=== PATIENT | female | born 1965 | race Caucasian/White ===

== ENCOUNTER 2020-10-26 08:37 | Emergency (ER) | payer OTHER, SELFPAY ==
[2020-10-26 08:37] VITALS: BP 145/105; PULSE 107; RESP 40; TEMP 36.6; O2SAT 97
[2020-10-26] MEDS: ONDANSETRON INJ 4 MG/2 ML VIAL IV PUSH (08:43)
[2020-10-26 09:28] VITALS: BP 143/93; PULSE 93; RESP 14; O2SAT 99
--- NOTE | 2020-10-26 09:35 | ED.SOB ---
HPI - SOB/Dyspnea General Chief Complaint: Shortness of Breath/Dyspnea Stated Complaint: allergic reaction Time Seen by Provider: 10/26/20 08:43 Source: patient Mode of arrival: ambulatory Limitations: other (she appears to be acutely anxious) History of Present Illness HPI Narrative: Patient comes in stating she is having difficulty breathing. She says she has allergies and used a new toothpaste today. She read that there was zinc in the toothpaste, and got concerned she would have an allergy, since she states she is allergic to zinc. This happened just minutes prior to presentation here. Anxiety appears severe, likely ongoing and precipitated by her discovering she used a toothpaste with zinc. SHe has no other obvious signs or symptoms. She was really too anxious for me to interview her well initially. After she was given zofran for nausea, she appeared to relax and was breathing easily. MD elicited complaint: shortness of breath Known history of: other (allergy to zinc) Associated symptoms: denies other symptoms Related Data Home Medications Medication Instructions Recorded Confirmed cyanocobalamin (vitamin B-12) 1,000 mcg SUBCUT WEEKLY 10/26/20 10/26/20 cyclobenzaprine 10 mg PO PRN 10/26/20 10/26/20 escitalopram oxalate 10 mg PO DAILY 10/26/20 10/26/20 fluoride (sodium) [PreviDent 5000 1 applic PO PRN 10/26/20 10/26/20 Dry Mouth] fluticasone propionate 2 spray INTRANASAL DAILY 10/26/20 10/26/20 Allergies Allergy/AdvReac Type Severity Reaction Status Date / Time ascorbic acid Allergy Severe THROAT Verified 09/29/16 11:30 SWELLS meperidine Allergy Severe SEVERE Verified 09/29/16 11:30 ITCHING morphine Allergy Severe RASH Verified 09/29/16 11:30 Penicillins Allergy Severe THROAT Verified 09/29/16 11:30 SWELLING Sulfa (Sulfonamide Allergy Severe SWELLING, Verified 09/29/16 11:30 Antibiotics) RASH tramadol Allergy Severe ITCHING Verified 09/29/16 11:30 zinc Allergy Severe THROAT Verified 09/29/16 11:30 SWELLING Review of Systems Constitutional: Constitutional: Reports no additional constitutional complaints Eyes: Eyes: Reports no additional eye complaints ENT: Reports system reviewed and no additional complaints, except as documented Cardiovascular: Cardiovascular: Reports no additional cardiovascular complaints Respiratory: Respiratory: Reports no additional respiratory complaints Gastrointestinal: Gastrointestinal: Reports no additional gastrointestinal complaints Genitourinary: Genitourinary: Reports no additional female genitourinary complaints Musculoskeletal: Musculoskeletal: Reports no additional musculoskeletal complaints Integumentary/Breasts: Skin/Breast: Reports system reviewed and no additional complaints, except as docu Neurologic: Reports system reviewed and no additional complaints, except as documented Psychiatric: Psychiatric: Reports no additional psychiatric complaints Endocrine: Endocrine: Reports no additional endocrine complaints Hematologic/Lymphatic: Hematologic/Lymphatic: Reports no additional hematologic/lymphatic complaints Allergic/Immunologic: Allergic/Immunologic: Reports no additional allergic/immunologic complaints [facility] Past Medical History Medical History (Updated 10/26/20 @ 16:40 by David Christian MD) Anemia Anxiety disorder B12 deficiency Panic attacks Surgical History Surgical History (Updated 10/26/20 @ 16:21 by David Christian MD) No significant past surgical history Family History Family History (Updated 10/26/20 @ 16:14 by David Christian MD) Mother No problems noted. Social History Social History (Updated 10/26/20 @ 16:21 by David Christian MD) Smoking status: Never smoker Alcohol intake: never Exam Const: General: alert (appears very anxious) HENMT: Head: normal to inspection Ears: external ears normal General nose exam: Normal external nose present Face and sinus: normal facial exam Eyes: Con
--- NOTE | 2020-10-26 10:21 | PC.NURSE ---
[id number] RN ATTEMPTS TO PROVIDED ADDITIONAL MEDICATION. PATIENT REFUSES. PT STATES YOU GUYS DONT BELIEVE ME THAT I AM HAVING AN ALLERGIC REACTION SO TAKE THIS STUFF OFF, I AM LEAVING RN ATTEMPTED TO PROVIDED EDUCATION AND APOLOGIZE FOR THE MISUNDERSTANDING. PT REFUSES. IV REMOVED. ERP MADE AWARE. ERP ATTEMPTED TO SPEAK WITH PATIENT, PATIENT REFUSED. PT LEFT [facility] ED BEFORE RN WAS ABLE TO PRESENT AMA DOCUMENT.
== END 2020-10-26 09:28 | disposition left against medical advice (07) ==
PROVIDERS: Emergency Provider Emergency Medicine; PCP Family Medicine
DX: F41.0 Panic disorder [episodic paroxysmal anxiety] (principal)
CPT/HCPCS: 96374; 99283; 99284; J2405

== ENCOUNTER 2024-03-26 14:31 | Outpatient (CLI) | payer OTHER, SELFPAY ==
--- NOTE | 2024-03-26 | ECG_ITS ---
Test Date: 2024-03-26 15:14:31 Measurements Intervals [place] Rate: 60 P: 19 CA: 170 QRS: 28 QRSD: 90 T: 36 QT: 415 QTc: 417 Interpretive Statements SINUS RHYTHM POSSIBLE INFERIOR MYOCARDIAL INFARCTION], PROBABLY OLD BASELINE ARTIFACT- I, II, III, AVR, AVL, AVF ABNORMAL ECG No previous ECG available for comparison Electronically Signed On 03-26-2024 15:32:11 CDT by Marcial Quiñonez D.O.
[2024-03-26 15:11] LABS: Anion Gap 9 mmol/L (4-12); Blood Urea Nitrogen 16 mg/dL (7-17); Calcium 9.2 mg/dL (8.4-10.2); Carbon Dioxide 29 mmol/L (22-30); Chloride 99 mmol/L (98-107); Estimated Glomerular Filt Rate 51; Glucose 96 mg/dL (65-110); Sodium 137 mmol/L (137-145)
== END 2024-03-26 14:32 | disposition home or self-care (01) ==
PROVIDERS: PCP Physician Assistant
DX: Z01.818 Encounter for other preprocedural examination (principal); R94.31 Abnormal electrocardiogram [ECG] [EKG]
CPT/HCPCS: 36415; 80048; 93005

== ENCOUNTER 2024-07-05 10:11 | Outpatient (CLI) | payer OTHER, SELFPAY ==
--- NOTE | ~2024-07-05 | XR_ITS ---
XR chest 2V Ordering provider: Francisco Siddiqui History: 58 years Female with . NEUROGENIC THORACIC OUTLET SYNDROME, PRE-OP . Comparison: August 01, 2012 FINDINGS: MEDIASTINUM: The cardiac silhouette is not enlarged. LUNGS: No infiltrates, effusions or pneumothorax. OTHER: No free air under the diaphragm. IMPRESSION: No acute cardiopulmonary pathology. Reviewed, dictated and finalized at location [facility]. [facility]
[2024-07-05 10:40] LABS: Hematocrit 41.5 % (37.0-47.0); Hemoglobin 13.8 g/dL (12.0-15.0); Mean Corpuscular HGB Conc 33.3 g/dl (32-36); Mean Corpuscular Hemoglobin 29.2 pg (26-34); Mean Corpuscular Volume 87.9 fl (80-100); Mean Platelet Volume 10.8 fl (7.4-10.4); Platelet Count Result 300 k/mm3 (150-375); Red Blood Count 4.72 M/mm3 (4.2-5.4); Red Cell Distribution Width 14.1 % (11.5-14.5); White Blood Count 9.4 K/mm3 (4.5-10.0)
[2024-07-05 10:53] LABS: Alanine Aminotransferase 20 U/L (6-35); Albumin Level 4.1 g/dL (3.5-5.1); Alkaline Phosphatase 106 U/L (38-126); Anion Gap -1 mmol/L (4-12); Aspartate Amino Transferase 18 U/L (14-36); Bilirubin,Total 0.7 mg/dL (0.2-1.3); Blood Urea Nitrogen 10 mg/dL (7-17); Calcium 9.4 mg/dL (8.4-10.2); Carbon Dioxide 34 mmol/L (22-30); Chloride 102 mmol/L (98-107); Estimated Glomerular Filt Rate 57; Glucose 92 mg/dL (65-110); Potassium 3.7 mmol/L (3.4-5.0); Sodium 135 mmol/L (137-145)
== END 2024-07-05 10:12 | disposition home or self-care (01) ==
PROVIDERS: PCP Physician Assistant
DX: Z01.818 Encounter for other preprocedural examination (principal)
CPT/HCPCS: 36415; 71046; 80053; 85027